=== PATIENT | female | born 2000 | race Caucasian/White ===

== ENCOUNTER 2022-10-19 13:04 | Emergency (ER) | payer MEDICAID ==
[~2022-10-19] VITALS: Ht 162.6 cm; Wt 45.0 kg
[2022-10-19 13:10] VITALS: BP 100/41
== END 2022-10-19 16:57 | disposition left against medical advice (07) ==
LOC: ER 13:04
DX: R07.81 Pleurodynia (principal); Z53.21 Procedure and treatment not carried out due to patient leaving prior to being seen by health care provider
CPT/HCPCS: 99281